=== PATIENT | female | born 2005 | race Caucasian/White ===

== ENCOUNTER 2024-05-07 20:15 | Emergency (ER) | payer MEDICAID, SELFPAY ==
[2024-05-07 20:15] VITALS: BP 126/73; PULSE 102; RESP 16; TEMP 36.6; O2SAT 98; BMI 38.3
--- NOTE | 2024-05-07 20:21 | EDS_ITS ---
HPI History of Present Illness Chief Complaint: Lower Extremity Injury PFSH PFSH Allergy/AdvReac Type Severity Reaction Status Date / Time No Known Allergies Allergy Verified 05/07/24 20:18 Social History Smoking Status: Never smoker EXAM Physical Exam Const Vital Signs: 05/07/24 20:15 05/07/24 22:15 Temperature 98 F 96.9 F L Temperature Source Oral Pulse Rate 102 H 98 Respiratory Rate 16 14 Blood Pressure 126/73 H 118/71 Blood Pressure Mean 90 86 Pulse Ox 98 98 Oxygen Delivery Method Room Air [facility] Narrative Medical decision making narrative: HISTORY OF PRESENT ILLNESS: 18 year-old female presents with left calf pain, numbness and tingling. This began yesterday. She notes her left leg feels colder than the right. She notes yesterday she will get a cramp in her left leg. This was severe and caused a lot of pain. She states her significant other tried to massage the area. She notes today she woke up with more pain and soreness. Is worse with movement and dorsiflexion of the left ankle. Denies any other falls or trauma. Denies syncope, chest pain or shortness of breath. Patient denies active cancer, being bedridden for greater than 3 days, denies unilateral leg swelling, denies any varicose veins, denies any calf tenderness, denies tenderness along deep venous system. Denies major surgery within 12 weeks, recent paralysis, previous DVT. REVIEW OF SYSTEMS: Pertinent positives: Calf pain, swelling, tenderness Pertinent negatives: Chest pain or shortness of breath PHYSICAL EXAM: Nursing triage notes reviewed, Vital signs reviewed Constitutional: please see mdm Extremities: No edema, positive left calf TTP. Negative Trujillo's test. Left lower extremity warm and perfused. No discoloration noted. Compartments are soft. Neuro: intact sensation L1-S1 dermatomal distributions. Intact 5/5 strength in hip flexion (T12-L3). Knee extension (L2-L4). Ankle dorsiflexion (L4-L5). Ankle plantar flexion (S1). Great toe extension (L5). 2+ patellar and Achilles DTRs. Skin: No rash or lesions noted MEDICAL DECISION MAKING: Chief Complaint: calf swelling External records reviewed: Reviewed prior ED visits Factors affecting care: First trimester [facility] Narrative: Patient was initially hemodynamically stable, afebrile and nontoxic-appearing. Exam with TTP over calf, no significant unilateral edema, pain with passive dorsiflexion. Intact pulses. Intact sensation. I considered the following differential diagnosis: Calf strain versus DVT ALL IMAGES (IF OBTAINED) HAVE BEEN PERSONALLY REVIEWED AND INTERPRETED BY MYSELF. DVT ultrasound was negative for acute DVT per medical customer service representative read. Formal radiology read also negative. Discussed Tylenol, rest ice compression elevation and stretching exercises. The patient and/or family, caregivers express understanding. The patient and/or family, caregivers agrees with the plan. Shared decision making: I will have a discussion with the patient and or visitors regarding risk/benefits of further testing or admission. They will be made aware of of the risk/benefits inherent in this decision they will be given the opportunity to voice understanding. Total critical care time today provided was at least 0 minutes. This excludes separately billable procedures. Critical care time (if documented) is secondary to the patient having high probability of clinically significant/life threatening deterioration in the patient's condition which required my urgent intervention. Impression: 1. Left calf strain 2. First trimester Dispo: Discharge home This note was generated with [employer] dictation software. It may contain incorrect words, spelling, and punctuation that were not noted in review of the chart prior to signing. Radiography Diagnostic Testing: Clinical Impression(s) from Imaging Studies Venous Duplex 05/07/24 21:21 IMPRESSION: No sonographic evidence of acute deep vein thrombosis in the left lower extremity Reading Location: [facility] Discharge Plan Triage Chief Complaint: Lower Extremity Injury ED Provider: Abdon Davis Dx/Rx/DC Orders Instructions: Gastrocnemius Muscle Tear Primary Care Provider: Care Physician,Miguelina Primary Referrals: Kaye Lutz DO [Med Staff - Active Staff] - Activity Restrictions/Additional Instructions: Thank you for trusting us with your care today! Your DVT ultrasound was negative for acute DVT. Please take Tylenol (2 pills, 650 mg) every 6 hours as needed for pain and fever control. Please return to the emergency department if your symptoms change or worsen. Specifically develop chest pain, shortness of breath, if you lose consciousness. Develop severe abdominal pain, vaginal bleeding. Please follow with your primary care physician for further outpatient evaluation and management. Print Language: Albanian Disposition Disposition: Home, Self Care Discharge Date/Time: 05/07/24 22:25
--- NOTE | 2024-05-07 21:21 | US_ITS ---
PROCEDURE: VENOUS DUPLEX IMAG/LIMITED/UNI REASON FOR EXAM: Pain and swelling in the left leg TECHNIQUE: Ultrasound imaging of left lower extremity venous system. COMPARISON: None. FINDINGS: Compressibility is noted in the left common femoral, femoral, popliteal and tibial veins. DOPPLER: Color Doppler: Normal color flow doppler signal Spectral Doppler: Normal arterial inflow and venous outflow signal US/Venous Duplex Imag/Limited/Uni IMPRESSION: No sonographic evidence of acute deep vein thrombosis in the left lower extremi ty [facility]
[2024-05-07 22:15] VITALS: BP 118/71; PULSE 98; RESP 14; TEMP 36.1; O2SAT 98
== END 2024-05-07 22:25 | disposition home or self-care (01) ==
PROVIDERS: Emergency Provider Emergency Medicine; Visit Provider Emergency Medicine
DX: O9A.211 Injury, poisoning and certain other consequences of external causes complicating pregnancy, first trimester (principal); S86.912A Strain of unspecified muscle(s) and tendon(s) at lower leg level, left leg, initial encounter; X58.XXXA Exposure to other specified factors, initial encounter; Z3A.00 Weeks of gestation of pregnancy not specified
CPT/HCPCS: 93971; 99282

== ENCOUNTER 2024-06-28 02:25 | Inpatient (IN) | payer MEDICAID, SELFPAY ==
[2024-06-28] VITALS (68 sets, daily range): BP systolic 102–149; BP diastolic 57–98; PULSE 68–116; RESP 14–18; TEMP 36.2–36.6; O2SAT 78–100; BMI 38.2
[2024-06-28 02:25] LABS: ROM Internal Control Test YES-OK TO RESULT pt. (Internal QC)
[2024-06-28 02:26] LABS: ROM Patient Test POSITIVE (Negative); Record Kit Lot#, ROM+ K3358
[2024-06-28 02:51] LABS: Absolute Lymphocyte Count 1.58 X10^3/uL (0.83-4.51); Absolute Neutrophil Count 4.6 X10^3/uL (2.0-7.7); Basophil# 0.02 X10^3/uL; Basophil% 0.3 % (0-1); Eosinophil# 0.05 X10^3/uL; Eosinophils% 0.7 % (0-5); Hematocrit 31.1 % (37-47); Hemoglobin 10.3 g/dL (12.0-15.0); Lymphocyte # 1.58 X10^3/ul (0.83-4.51); Lymphocyte % 23.3 % (19-41); Mean Corp Hgb Conc 33.1 g/dL (32-36); Mean Corpuscular Volume 78.5 fL (81-99); Mean Platelet Vol. 9.1 fl (6.2-12.0); Monocyte# 0.49 X10^3/uL; Monocyte% 7.2 % (0-10); NRBC Flagged by Analyzer 0 % (0-5); Neutrophil # 4.61 X10^3/uL (2.7-7.7); Neutrophil % 68.2 % (47-70); Platelet Count 296 K/mm3 (150-450); RBC Distribution Width CV 14.3 % (11.6-14.6); RBC Distribution Width SD 40.2 fl (35.1-43.9); Red Blood Count 3.96 M/mm3 (4.2-5.4); White Blood Count 6.8 K/mm3 (4.4-11.0)
[2024-06-28] MEDS: Lactated Ringers 1,000 ML 999 ML IV (03:00)
[2024-06-28 03:17] LABS: Syphilis Antibodies Nonreactive (Nonreactive)
[2024-06-28] MEDS: Lactated Ringers 1,000 ML 200 ML IV (04:01)
[2024-06-28] MEDS: fentaNYL-bupivacaine (epidural) 100 ML BAG EPIDURAL (04:47)
--- NOTE | 2024-06-28 05:50 | PCM.HP.OB ---
HPI - General General Date of Admission: 06/28/24 HPI Narrative FRANKLIN MAHAN, is a 18 F who presents at 39w5d with PHOEBE: 06/30/24. Arrived to L&D after SROM for clear fluid. Contractions prior to rupture of membranes but mild. No vagainl bleeding. Maternal Data Information PHOEBE Calculator Estimated Delivery Date Method Current WG Current Estimate 06/30/24 Manual 39w 5d Final PHOEBE: 06/30/24 PFSH PFS Medical History (Updated 06/28/24 @ 06:00 by Heavenly Velez CNM) Late care affecting in first trimester Anemia affecting Home Medications ?Medication ?Instructions ?Recorded ?Last Taken ?Type aspirin 81 mg tablet,delayed 81 mg PO DAILY 06/28/24 06/27/24 History release (Adult Low Dose Aspirin) ferrous sulfate 325 mg (65 mg 325 mg PO DAILY anemi 06/28/24 06/27/24 History iron) tablet (Feosol) vit no.95-ferrous 1 tab PO DAILY pregnan 06/28/24 06/27/24 History fumarate 28 mg-folic acid 800 mcg tablet () Allergy/AdvReac Type Severity Reaction Status Date / Time No Known Allergies Allergy Verified 06/28/24 01:45 Social History Smoking Status: Never smoker History Elective abortions Hx Para 1 Spontaneous abortions Hx # Term Pregnancies Ectopic pregnancies Hx # Pregnancies Multiple births # of living children NST FHR Rate Baby A Baseline: 135 Variability:: Moderate Accelerations:: 15 x 15 Decelerations:: None FHR Category:: Category I Uterine Activity:: Irregular ROS Constitutional Constitutional: Reports systems reviewed and no addt'l complaints, except as documented; Denies headache(s) Eyes Eyes: Denies acute decrease in peripheral vision, blurry vision or change in vision ENT HEENT: Reports systems reviewed and no addt'l complaints, except as documented Cardiovascular Cardiovascular: Denies chest pain or dizziness Respiratory/Chest Respiratory/Chest: Denies cough, dyspnea, dyspnea on exertion, shortness of breath at rest or shortness of breath with exertion Gastrointestinal Gastrointestinal: Denies abdominal pain, diarrhea, nausea or vomiting Genitourinary Genitourinary: Denies abdominal discomfort Musculoskeletal Musculoskeletal: Denies limited range of motion Integumentary Integumentary: Reports systems reviewed and no addt'l complaints, except as documented Neurologic Neurologic: Reports systems reviewed and no addt'l complaints, except as documented Psychiatric Psychiatric: Reports systems reviewed and no addt'l complaints, except as documented Endocrine Endocrinology: Reports systems reviewed and no addt'l complaints, except as documented Hematologic/Lymphatic Hematologic/Lymphatic: Reports systems reviewed and no addt'l complaints, except as documented Allergic/Immunologic Allergic/Immunologic: Reports systems reviewed and no addt'l complaints, except as documented Vital Signs Vital Signs Vital Signs: 06/28/24 01:47 06/28/24 01:47 06/28/24 01:47 Temperature Temperature Source Temporal Pulse Rate 93 Respiratory Rate Blood Pressure 120/73 BP Systolic 120 BP Diastolic 73 Pulse Ox 06/28/24 01:47 06/28/24 01:47 06/28/24 01:48 Temperature 97.9 F Temperature Source Pulse Rate 116 H Respiratory Rate 14 Blood Pressure BP Systolic BP Diastolic Pulse Ox 06/28/24 01:48 06/28/24 04:11 06/28/24 04:11 Temperature Temperature Source Pulse Rate 87 Respiratory Rate Blood Pressure 149/73 H BP Systolic 149 BP Diastolic 73 Pulse Ox 98 06/28/24 04:11 06/28/24 04:16 06/28/24 04:16 Temperature Temperature Source Pulse Rate 86 Respiratory Rate Blood Pressure 130/79 H BP Systolic 130 BP Diastolic 79 Pulse Ox 100 06/28/24 04:16 06/28/24 04:16 06/28/24 04:21 Temperature Temperature Source Pulse Rate 92 Respiratory Rate Blood Pressure 133/75 H BP Systolic 133 BP Diastolic 75 Pulse Ox 100 06/28/24 04:21 06/28/24 04:21 06/28/24 04:21 Temperature Temperature Source Pulse Rate 85 85 Respiratory Rate Blood Pressure BP Systolic BP Diastolic Pulse Ox 100 06/28/24 04:26 06/28/24 04:26 06/28/24 04:26 Temperature Temperature Source Pulse Rate 86 90 Respiratory Rate Blood Pressure 129/73 H BP Systolic 129 BP Diastolic 73 Pulse Ox 06/28/24 04:26 06/28/24 04:30 06/28/24 04:30 Temperature Temperature Source Pulse Rate 80 Respiratory Rate Blood Pressure BP Systolic BP Diastolic Pulse Ox 100 78 06/28/24 04:31 06/28/24 04:31 06/28/24 04:33 Temperature Temperature Source Pulse Rate 92 96 Respiratory Rate Blood Pressure 130/76 H BP Systolic 130 BP Diastolic 76 Pulse Ox 06/28/24 04:33 06/28/24 04:36 06/28/24 04:36 Temperature Temperature Source Pulse Rate 100 Respiratory Rate Blood Pressure 139/83 H BP Systolic 139 BP Diastolic 83 Pulse Ox 97 06/28/24 04:36 06/28/24 04:38 06/28/24 04:38 Temperature Temperature Source Pulse Rate 88 Respiratory Rate Blood Pressure BP Systolic BP Diastolic Pulse Ox 86 98 06/28/24 04:41 06/28/24 04:41 06/28/24 04:43 Temperature Temperature Source Pulse Rate 101 H 90 Respiratory Rate Blood Pressure 130/75 H BP Systolic 130 BP Diastolic 75 Pulse Ox 06/28/24 04:43 06/28/24 04:43 06/28/24 04:46 Temperature Temperature Source Pulse Rate Respiratory Rate 18 Blood Pressure 127/98 H BP Systolic 127 BP Diastolic 98 Pulse Ox 100 06/28/24 04:46 06/28/24 04:48 06/28/24 04:48 Temperature Temperature Source Pulse Rate 108 H 103 H Respiratory Rate Blood Pressure BP Systolic BP Diastolic Pulse Ox 100 06/28/24 04:48 06/28/24 04:49 06/28/24 04:49 Temperature Temperature Source Pulse Rate 107 H Respiratory Rate 16 Blood Pressure BP Systolic BP Diastolic Pulse Ox 94 06/28/24 04:51 06/28/24 04:51 06/28/24 04:53 Temperature Temperature Source Pulse Rate 93 108 H Respiratory Rate Blood Pressure 130/63 H BP Systolic 130 BP Diastolic 63 Pulse Ox 06/28/24 04:53 06/28/24 04:53 06/28/24 04:57 Temperature Temperature Source Pulse Rate Respiratory Rate 18 Blood Pressure 120/58 L BP Systolic 120 BP Diastolic 58 Pulse Ox 100 06/28/24 04:57 06/28/24 04:57 06/28/24 04:58 Temperature Temperature Source Temporal Pulse Rate 95 Respiratory Rate Blood Pressure BP Systolic BP Diastolic Pulse Ox 90 06/28/24 04:58 06/28/24 04:58 06/28/24 04:58 Temperature Temperature Source Pulse Rate 86 Respiratory Rate 18 Blood Pressure BP Systolic BP Diastolic Pulse Ox 99 06/28/24 04:58 06/28/24 04:58 06/28/24 05:01 Temperature 97.5 F L Temperature Source Pulse Rate Respiratory Rate 18 Blood Pressure 119/59 L BP Systolic 119 BP Diastolic 59 Pulse Ox 06/28/24 05:01 06/28/24 05:03 06/28/24 05:03 Temperature Temperature Source Pulse Rate 89 108 H Respiratory Rate Blood Pressure BP Systolic BP Diastolic Pulse Ox 100 06/28/24 05:05 06/28/24 05:05 06/28/24 05:08 Temperature Temperature Source Pulse Rate 103 H 86 Respiratory Rate Blood Pressure BP Systolic BP Diastolic Pulse Ox 84 06/28/24 05:08 06/28/24 05:12 06/28/24 05:13 Temperature Temperature Source Pulse Rate 107 H Respiratory Rate Blood Pressure BP Systolic BP Diastolic Pulse Ox 80 80 06/28/24 05:13 06/28/24 05:43 06/28/24 05:43 Temperature Temperature Source Pulse Rate 85 Respiratory Rate Blood Pressure 126/77 H BP Systolic 126 BP Diastolic 77 Pulse Ox 93 Weight Weight: 216 lb Body Mass Index (BMI) 38.2 Physical Exam Const alert and oriented x3 General Appearance: cooperative Orientation / Consciousness: awake, oriented to person, oriented to place and oriented to time Exam Limitations: no limitations HEENT normocephalic Head and Scalp: normal to inspection, normocephalic and atraumatic Face and Sinus: normal facial exam Eyes General Eye: normal appearance of both eyes Neck full ROM Chest Chest: symmetrical chest wall rise Resp normal respiratory effort and normal air movement Auscultation: clear to auscultation bilaterally Cardio regular rate, regular rhythm, S1 normal heart sound, S2 normal heart sound, no murmurs, no rub, no gallops and no clicks GI normal to inspection, nondistended, normoactive bowel sounds and non-tender appearance of the vagina normal Bladder / Kidney Exam: no CVA tenderness Back/Spine normal ROM Extremity normal to inspection and full ROM Skin no rashes or lesions noted Neuro oriented x3, CN's II-XII intact bilaterally and moves all extremities Sensorium / Orientation: awake, alert and oriented to person Motor Exam: clonus absent Deep Tendon Reflexes: Rt Patellar (L4): 2+ and Lt Patellar (L4): 2+ Labs Labs Labs: Blood Type O POSITIVE Antibody Screen NEGATIVE Hct 31.1 % (37-47) L Hgb 10.3 g/dL (12.0-15.0) L Syphilis Total Ab Nonreactive (Nonreactive) GBS negative RPR negative HIV negative HBsAG negative Rubella Immune Hep C negative O positive GC/CT negative Assessment & Plan (1) 39 weeks gestation of : (2) Obesity affecting : (3) SROM (spontaneous rupture of membranes): (4) Active labor at term: (5) Multiparous: PLAN: Plan 1) Admit to labor and delivery 2) Routine labs 3) Continuous EFM 4) Pain management upon request 5) collaborative physician and notified of patient status, above assessment, and plan.
[2024-06-28] MEDS: Oxytocin 15 Units/NS 250ml 15 UNITS/250 ML IV.SOLN 83 UNITS IV (06:14)
[2024-06-28] MEDS: Oxytocin 10 UNITS/ML Vial IM (06:16)
--- NOTE | 2024-06-28 06:25 | OB.VAGDELI_ITS ---
Assessment & Plan (1) Vaginal delivery: (2) Lactating mother: Maternal Data Information PHOEBE Calculator Estimated Delivery Date Method Current WG Current Estimate 06/30/24 Manual 39w 5d Vaginal Delivery Maternal Presentation Maternal Presentation: Active Labor and Spontaneous Rupture of Membranes Vaginal Delivery Information Procedure Performed: Spontaneous Vaginal Delivery Surgeon/Practitioner: Heavenly Velez Date of Procedure: 06/28/24 Pre-Procedure Diagnosis: SROM, Active Labor Post-Procedure Diagnosis: Type of anesthesia: Epidural Estimated Blood Loss: 300ml Time of Delivery: 06:09 Findings Description of procedure: Progressed to complete with urge to push. Epidural for pain management. of viable female over intact perineum . APGARS 8,9 respectively. head delivered with body immediately forthcoming. Placed on maternal abdomen, strong cry. Mouth and nares wiped for secretions. Pitocin started for active 3rd stage management. Cord doubly clamped and cut by FOB after pulsations ceased, delayed cord clamping. Placenta delivered intact via gay, 3 vessel cord intact. Perineum inspected and revealed intact. Fundus firm and hemostasis achieved. EBL 300ml. Mom and baby stable, planning to breastfeed. Family bonding well. notified of delivery. Presentation: Vertex and MANOJ Amniotic Membrane Rupture Type: Spontaneous Amniotic Fluid Description: Clear Placental Delivery Description: Spontaneous Placenta Disposition: [facility] Specimen collected: No Cord Vessel Description: 3 Vessels Cord Entanglement: None Infant A Gender: Female (1 minute): 8 (5 minute): 9 Delayed Cord Clamping: Yes Manager [employer] watch engine operator: No Post Vaginal Deli Medications given after delivery: IV Pitocin and IM Pitocin Episiotomy Description: None Laceration: None Complication Complications: No
[2024-06-29 04:12] VITALS: BP 89/53; PULSE 68; RESP 16; TEMP 36.2; O2SAT 98
[2024-06-29 04:13] VITALS: PULSE 68; O2SAT 98
[2024-06-29 04:14] VITALS: BP 89/53; PULSE 68
[2024-06-29 06:52] LABS: Absolute Lymphocyte Count 1.77 X10^3/uL (0.83-4.51); Absolute Neutrophil Count 5.3 X10^3/uL (2.0-7.7); Basophil# 0.02 X10^3/uL; Basophil% 0.3 % (0-1); Eosinophils% 1.3 % (0-5); Hematocrit 34.2 % (37-47); Lymphocyte # 1.77 X10^3/ul (0.83-4.51); Lymphocyte % 22.7 % (19-41); Mean Corp Hgb Conc 32.2 g/dL (32-36); Mean Corpuscular Hgb 25.8 pg (27.0-32.0); Mean Corpuscular Volume 80.1 fL (81-99); Mean Platelet Vol. 9.3 fl (6.2-12.0); Monocyte# 0.57 X10^3/uL; Monocyte% 7.3 % (0-10); NRBC Flagged by Analyzer 0 % (0-5); Neutrophil # 5.31 X10^3/uL (2.7-7.7); Neutrophil % 68.1 % (47-70); Platelet Count 310 K/mm3 (150-450); RBC Distribution Width CV 14.3 % (11.6-14.6); Red Blood Count 4.27 M/mm3 (4.2-5.4); White Blood Count 7.8 K/mm3 (4.4-11.0)
--- NOTE | 2024-06-29 06:55 | PN.OBGYN_ITS ---
Subjective Subjective Doing well. Ambulating and voiding without difficulty. Mild lochia. Breast feeding. Objective Data Objective Data Vital Signs: Vital Signs Temp Pulse Resp BP Pulse Ox O2 Del Method 97.2 F L 68 16 89/53 L 98 Room Air 06/29/24 04:12 06/29/24 04:14 06/29/24 04:12 06/29/24 04:14 06/29/24 04:13 06/29/24 04:12 Oxygen Delivery Method Room Air Weight: 97.976 kg Body Mass Index (BMI) 38.2 Intake & Output: Intake and Output for Last 24 Hours 06/27/24 06/28/24 06/29/24 23:59 23:59 23:59 Intake Total 1696.67 / 1696.67 Output Total 1000 / 1000 Balance 696.67 / 696.67 Lab / Micro Data 06/29/24 06:30 Labs: Laboratory Results - last 24 hr 06/29/24 06:30: WBC 7.8, RBC 4.27, Hgb 11.0 L, Hct 34.2 L, MCV 80.1 L, MCH 25.8 L, MCHC 32.2, RDW Std Deviation 41.0, RDW Coeff of Helen 14.3, Plt Count 310, MPV 9.3, Immature Gran % (Auto) 0.300, Neut % (Auto) 68.1, Lymph % (Auto) 22.7, [place] % (Auto) 7.3, Eos % (Auto) 1.3, Baso % (Auto) 0.3, Absolute Neuts (auto) 5.3, Absolute Lymphs (auto) 1.77, Nucleated RBC % 0 ROS Constitutional Constitutional: Denies headache(s) Cardiovascular Cardiovascular: Denies chest pain or dyspnea Gastrointestinal Gastrointestinal: Denies nausea or vomiting Genitourinary Genitourinary: Denies dysuria Physical Exam Const alert, oriented x3 and no apparent distress General Appearance: cooperative and comfortable Eyes PERRL and EOMs intact bilaterally Resp normal respiratory effort GI soft to palpation and non-tender Uterus Palpation: uterus fundus firm ( below umbilicus) Extremity normal to inspection and full ROM Neuro oriented x3 and CN's II-XII intact bilaterally Psych mental status grossly normal Assessment & Plan (1) Vaginal delivery: (2) Lactating mother: PLAN: Plan Discharge today
--- NOTE | 2024-06-29 06:58 | DS.PCM_ITS ---
Providers Date of Admission: 06/28/24 Date of Discharge: 06/29/24 Primary Care Physician: No Primary Care Phys Reason For Visit: MATERNITY/VAGINAL DELIVERY Diagnosis Discharge Diagnosis (1) Vaginal delivery: Status: Acute Code(s): O80 - Encounter for full-term uncomplicated delivery (2) Lactating mother: Status: Acute Code(s): Z39.1 - Encounter for care and examination of lactating mother Plan Discharge today Medications at Discharge Home Medications ferrous sulfate 325 mg (65 mg iron) tablet (Feosol) 325 mg PO DAILY anemi 06/28/24 vit no.95-ferrous fumarate 28 mg-folic acid 800 mcg tablet () 1 tab PO DAILY pregnan 06/28/24 Hospital Course Operations None Procedures None Summary of Care Provided Minutes Spent on Discharge: 20 Hospital Course: without complication. Breast feeding. Physical Exam Const alert and no apparent distress Narrative: Fundus firm, below umbilicus. Weight / BMI Weight Weight: 97.976 kg Body Mass Index (BMI) 38.2 ABG / Lab / Microbiology Data 06/29/24 06:30 Laboratory: Laboratory Results - last 24 hr 06/29/24 06:30: WBC 7.8, RBC 4.27, Hgb 11.0 L, Hct 34.2 L, MCV 80.1 L, MCH 25.8 L, MCHC 32.2, RDW Std Deviation 41.0, RDW Coeff of Helen 14.3, Plt Count 310, MPV 9.3, Immature Gran % (Auto) 0.300, Neut % (Auto) 68.1, Lymph % (Auto) 22.7, Anderson % (Auto) 7.3, Eos % (Auto) 1.3, Baso % (Auto) 0.3, Absolute Neuts (auto) 5.3, Absolute Lymphs (auto) 1.77, Nucleated RBC % 0 D/C Instructions May resume sexual activity in: 6 weeks DC O2, CPAP, BIPAP Needs Home O2 Discharge instructions: No Please Follow Up With: Mei Krause MD When: Follow up with our office in 1-2 and 6 weeks or as needed. [phone] Meaningful Use Info Meaningful Use Meaningful Use Diagnoses (Choose all that apply): None applicable Ischemic Stroke Statin Dosing Therapy Reference: STATIN DOSE THERAPY REFERENCE: * Patients > 75 years receive moderate or high dose statin therapy. * Patients 75 years or YOUNGER should receive HIGH intensity statin dose unless contraindicated. You will be required to document reason for non-treatment if statin daily dose does not meet guidelines. HIGH DOSE STATIN THERAPY DAILY Atorvastatin > than or = to 40 mg Rosuvastatin > than or = to 20 mg Amlodipine + Atorvastatin > than or = to 2.5/40 mg Ezetimibe + Simvastatin 10/80 mg Simvastatin 80mg Discharge Plan Admission Admit Date/Time: 06/28/24 02:25 Primary Reason for Your Visit: labor Attending Provider: Heavenly Velez Primary Care Provider: Care Physician,No Primary Discharge Orders/Prescriptions Prescriptions: Continued PNV cmb#95-ferrous fumarate-FA [] 28 mg iron- 800 mcg tablet 1 tab PO DAILY ferrous sulfate [Feosol] 325 mg (65 mg iron) tablet 325 mg PO DAILY Discontinued aspirin [Adult Low Dose Aspirin] 81 mg tablet,delayed release (DR/EC) 81 mg PO DAILY Referrals / Follow Up: Care Physician,No Primary [Primary Care Provider] - Disposition Disposition (needs filled in before D/C Order can be placed): Home, Self Care
[2024-06-29 07:46] VITALS: BP 117/70; PULSE 61; RESP 16
[2024-06-29] MEDS: Ibuprofen 600 MG Tablet PO (07:49)
--- NOTE | 2024-06-29 11:16 | CASEMGMT ---
Social Work Assessment Labor and Delivery Unit Patient Address: [address] [place] [address], [place] [address] Phone number: [phone] Date of Referral: 06/28/24 Time of Referral:? 1026 Referred By: Heavenly Velez Date of Intervention: ?06/29/24? Time of Intervention:? 1100 Reason for Referral:? resources, patient 18 y/o Sw completed chart review and acknowledges social work consult. Sw presented to bedside and introduced self to mother of baby (MOB- Catrachito) and father of baby (FOB- Narinder). Sw explained reason for sw involvement and completed psychosocial assessment. History obtained from: medical records, MOB and FOB Household composition: Currently residing in the family home is MOB, ARGENTINA, their 1 year old daughter, Pamela, and baby when ready for discharge. Parents deny any problems or concerns with housing, stating that it is safe and secure. Patient's parent/guardian status:? BALA states that she and ARGENTINA have been together for almost 5 years after meeting each other in school. No concerns regarding domestic violence or intimate partner violence. ? Medical History: ?BALA is 18 year old female who is 2, para 1- now 2 following labor and delivery of . BALA received routine care during with [facility]. BALA presented to hospital and delivered baby via spontaneous vaginal delivery on 06/28/24 at 39 weeks gestation. Baby girl, named Ana Lilia, was born weighing 6lb 13oz with apgars of 8 and 9 at one and five minutes of life respectfully. BALA reports that she is breast feeding and baby will be followed by Dr. Valladares for pediatrics. Educational Status:? Both parents graduated from high school, no college education. Parents deny problems or concerns with reading, learning or comprehension. Financial Status: FOB is employed at [employer], MOB states that she is not working at this time. Supplies: All necessary baby supplies obtained, including: car seat, safe sleep space, clothes, diapers and wipes. Childcare/Caregiver(s):? MOB will be the primary caregiver to baby Transportation:?? Both MOB and FOB water tanker driver and have their drivers license and reliable means of transportation. Programs/Agencies Involved: ???BALA is connected to insurance through [employer]. MOB states that she is going to apply for SNAP benefits now that she is not working and has another dependent. Children Services/Legal Issues:???No prior involvement noted, no issues or concerns warranting referral to be made at this time. Behavioral Health Issues: ??Mental Health History: Parents deny mental health history or diagnoses. ?Substance Use History:?Parents deny substance use prior to and during . ? Family History: No family history of significant mental health diagnoses or substance use.? Drug Screens: No drug screens observed while completing chart review. Family/Social Stressors:? Parents deny any problems, concerns or stressors at this time. Support Systems: MOB identified FOB, and both sets of grandparents as being her biggest supports at this time. Depression/Shaken Baby/Safe Sleeping: Sw educated parents on sign and symptoms of baby blues and depression and anxiety. Parents state that they are understanding of what symptoms to be mindful of. MOB denies experiencing any baby blues or symptoms after her first daughter was born. Sw educated parents on shaken baby prevention and ABCs of safe sleep. Parents express understanding. ASSESSMENT:? MOB and baby admitted following labor and delivery. This is parents second baby together and they are 19 years old. Parents are living independently and have natural supports in place. FOB is working and this provides family with a steady income. FOB states that he works multimedia engineer, but is looking for something to make more money. MOB is unemployed at this time, and states that they have finances to be able to pay for their utilities, rent and car payments. MOB states that when the is older she will look for another job, but quit her job to be at home. Parents deny history of mental health, including property economist with baby blues or depression/ anxiety. Parents were quiet while meeting with , although receptive to doing so. MOB talked mostly and answered questions asked to complete assessment. MOB observed sitting in chair in room and FOB laying on bed. FOB gathering belongings in preparation for discharge. MOB observed to look at baby in loving way and reports to feeling a graham with her. PLAN:?? No other services requested or indicated. MOB and baby to be discharged when medically ready. Parents were provided literature regarding: signs and symptoms of baby blues and mood and anxiety disorders, Help Me Grow, shaken baby prevention, ABCs of safe sleep and a list of county resources that are available for them should any needs present themselves. Alison Rodríguez, STEM TEACHER, MASTER MECHANIC
[2024-06-29 12:40] VITALS: BP 109/60; PULSE 66; RESP 17
[2024-06-29 12:41] VITALS: BP 109/60; PULSE 66
== END 2024-06-29 13:05 | disposition home or self-care (01) | DRG 560 ==
LOC: WPOUT 02:29 → WP 02:29
PROVIDERS: Admitting Provider Advanced Practice Midwife; Referring Provider Advanced Practice Midwife; Visit Provider Advanced Practice Midwife
DX: O99.214 Obesity complicating childbirth (principal); Z37.0 Single live birth; O99.02 Anemia complicating childbirth; Z3A.39 39 weeks gestation of pregnancy; Z64.1 Problems related to multiparity; Z79.82 Long term (current) use of aspirin
CPT/HCPCS: 36415; 59025; 59050; 84112; 85025; 86780; 86850; 86900; 86901; 99221; G0378